=== PATIENT | female | born 1945 | race Caucasian/White ===

== ENCOUNTER 2016-08-31 06:32 | Day surgery (SDC) | payer MEDICARE ==
--- NOTE | ~2016-08-31 | OP ---
Record Of Operation [facility] [address] [facility] [place]. [address] NAME: SHOLA OLIVIER : 45 STATUS : REG [facility] [place] PAT#: [id number] AGE: 70 ADM/REG DATE : 08/31/16 MR#: [id number] REPORT SERV DATE: 08/31/16 DICTATED BY: TYSON DAVIES JR. DATE: 08/31/16 REPORT STATUS : Draft TRANSCRIBED BY: KAILYN DATE: 08/31/16 DATE OF PROCEDURE: 08/31/2016 PREOPERATIVE DIAGNOSES: Non-small cell lung cancer, right lower lobe, chronic obstructive pulmonary disease, atrial fibrillation, coronary disease, and history of breast cancer. POSTOPERATIVE DIAGNOSES: Non-small cell lung cancer, right lower lobe, chronic obstructive pulmonary disease, atrial fibrillation, coronary disease, and history of breast cancer. NAME OF OPERATION: Diagnostic and therapeutic bronchoscopy, endobronchial ultrasound with multiple fine-needle aspirations, breezy stations 4R, 7, 11R. SURGEON: Tyson Davies M.D. RESIDENT SURGEON: Stevenson Flores MD ANESTHESIA: General endotracheal. FINDINGS: The patient was noted to have no endobronchial lesions. Her anatomy was normal. Mucous secretions were evacuated. Nodes in the right paratracheal, subcarinal, and right hilar area all morphologically looked normal. On multiple touch preps, there were adequate lymphocytes with no evidence of cancer. Additional material was sent for cell block. Final pathology is pending. DETAILS OF OPERATION: After adequate anesthesia, the patient was intubated. Diagnostic and therapeutic bronchoscopy was performed with the above findings noted. Endobronchial ultrasound was then performed noting the ultrasound findings of the paratracheal and hilar lymph nodes. We sampled subcarinal, right paratracheal, and right hilar nodes. They all looked benign on ultrasound as well as on touch prep. Additional material was sent for cell block. Final pathology is pending. Adequate hemostasis was obtained. The procedure was terminated at this point. The patient tolerated the procedure well and returned to the recovery room in stable condition. GONZALEZ/KAILYN Tyson Davies Jr., M.D. / [id number] CC: Lore Damico Jr., MD
[~2016-08-31 06:32] MED LIST: ADVAIR250 INH; ASAB PO; ATROVENTUD INH; BETAP120 PO; FLONASE NAS; GLUCPH PO; INCRUSE ELLI62.5 MCG INH; LIPITOR20 PO; PLAVIX PO; PREV15 PO; SINGULAIR1 PO; XYZAL5 MG PO; [UNRECOGNIZED DRUG - REMARK] INH
== END 2016-08-31 23:59 | disposition home or self-care (01) ==
LOC: DMU 06:32
PROVIDERS: Thoracic Surgery (Cardiothoracic Vascular Surgery)
PROC: 0BJ08ZZ Inspection of Tracheobronchial Tree, Via Natural or Artificial Opening Endoscopic (ICD-10-PCS; principal; 2016-08-31 08:00)
PROC: 07974ZX Drainage of Thorax Lymphatic, Percutaneous Endoscopic Approach, Diagnostic (ICD-10-PCS; 2016-08-31 08:00)
DX: C34.31 Malignant neoplasm of lower lobe, right bronchus or lung (principal); J44.9 Chronic obstructive pulmonary disease, unspecified; I48.91 Unspecified atrial fibrillation; I25.10 Atherosclerotic heart disease of native coronary artery without angina pectoris; R59.9 Enlarged lymph nodes, unspecified; F17.210 Nicotine dependence, cigarettes, uncomplicated; E11.9 Type 2 diabetes mellitus without complications; M19.90 Unspecified osteoarthritis, unspecified site; J45.909 Unspecified asthma, uncomplicated; Z85.3 Personal history of malignant neoplasm of breast; Z88.2 Allergy status to sulfonamides; Z88.5 Allergy status to narcotic agent; Z88.8 Allergy status to other drugs, medicaments and biological substances; Z96.1 Presence of intraocular lens; Z98.890 Other specified postprocedural states; Z87.01 Personal history of pneumonia (recurrent); Z90.49 Acquired absence of other specified parts of digestive tract; Z90.710 Acquired absence of both cervix and uterus; Z85.118 Personal history of other malignant neoplasm of bronchus and lung; Z92.21 Personal history of antineoplastic chemotherapy; Z92.3 Personal history of irradiation
CPT/HCPCS: 80048; 82962; 85014; 85018; 88172; 88173; 88305; 93005; A9270-GY; C1725; J2370; J2405; J3010

== ENCOUNTER 2016-09-06 07:35 | Inpatient (IN) | payer MEDICARE ==
[2016-08-31 07:08] LABS: BASOPHILS 0.3 %; BASOPHILS ABSOLUTE 0.03 10/3/uL (0.0-0.16); EOSINOPHILS 2.5 %; EOSINOPHILS ABSOLUTE 0.24 10/3/uL (0.0-0.53); HEMATOCRIT 42.2 % (36.0-48.0); HEMOGLOBIN 13.4 g/dL (12.0-16.0); IMMATURE GRANULOCYTES 0.4 %; IMMATURE GRANULOCYTES ABSOLUTE 0.04 10/3/uL (0.0-0.11); LYMPHOCYTES 22.5 %; LYMPHOCYTES ABSOLUTE 2.17 10/3/uL (0.67-4.30); MEAN CORPUS HGB CONC 31.8 g/dL (32.0-36.0); MEAN CORPUSCULAR VOLUME 88.1 fL (80-100); MEAN PLATELET VOLUME 9.8 fL (9.2-13.0); MONOCYTES 6.1 %; MONOCYTES ABSOLUTE 0.59 10/3/uL (0.21-1.20); NEUTROPHILS 68.2 %; NEUTROPHILS ABSOLUTE 6.57 10/3/uL (2.02-8.40); PLATELET COUNT 292 10/3/uL (150-400); RED CELL COUNT 4.79 10/6/uL (4.0-5.6); WHITE BLOOD CELLS 9.6 10/3/uL (4.5-10.5)
[2016-08-31 07:10] LABS: MANUAL DIFF NO %
[2016-08-31 07:17] LABS: INTERNATIONAL NORMAL RATI 0.9 UNITS (-); PROTIME (NOT ORD) 11.9 SEC (12.0-14.5)
[2016-08-31 07:24] LABS: A/G RATIO 1.2 (0.7-1.9); ALBUMIN 3.8 G/DL (3.5-5.0); CHLORIDE, SERUM 105 MMOL/L (96-112); CO2 (CARBON DIOXIDE) 31 MMOL/L (24-34); CREATININE 0.58 MG/DL (0.55-1.02); GFR AFRICAN AMERICAN 108 ML/MIN (>=60); GFR NON AFRICAN AMERICAN 93 ML/MIN (>=60); GLOBULIN 3.3 G/DL (2.5-4.1); GLUCOSE, SERUM 120 MG/DL (60-99); POTASSIUM, SERUM 4.4 MMOL/L (3.5-5.3); SGOT(AST) 11 U/L (5-40); SGPT(ALT) 13 U/L (5-65); SODIUM, SERUM 140 MMOL/L (135-148); TOTAL BILIRUBIN 0.2 MG/DL (0-1.2); TOTAL PROTEIN 7.1 G/DL (6.0-8.5)
[2016-08-31 07:25] LABS: ALKALINE PHOSPHATASE 128 U/L (45-117); BUN (BLOOD UREA NITROGEN) 20 MG/DL (6-23)
[2016-08-31 09:01] LABS: ASCORBIC ACID (UR NOT ORDER) NEG (NEG); BILIRUBIN, URINE NEGATIVE (NEG); KETONE, URINE NEGATIVE (NEG); LEUKOCYTE ESTERASE(NOT OR NEG (NEG); WBC (NOT ORDERED) (RFLEX) < 1 (0-5)
--- NOTE | ~2016-09-06 | DS ---
Discharge Summary [facility] [address] [place]. [address] NAME: SHOLA OLIVIER : 45 STATUS : DIS IN PAT#: [id number] AGE: 70 ADM/REG DATE : 09/06/16 MR#: [id number] REPORT SERV DATE: 09/20/16 DICTATED BY: TYSON DIAZ DATE: 09/19/16 REPORT STATUS : Draft TRANSCRIBED BY: KAILYN DATE: 09/19/16 Data Collection from hospitalization DISCHARGE DIAGNOSES: 1. Squamous cell carcinoma of the right lung. 2. Paroxysmal atrial fibrillation. 3. Chronic obstructive pulmonary disease. 4. Tobacco abuse. 5. Diabetes mellitus. 6. History of breast cancer. 7. Tobacco abuse. CONSULTATIONS: None. PROCEDURES PERFORMED: Right video-assisted thoracic surgery with right lower lobectomy and mediastinal lymph node dissection on 09/06/2016. PATHOLOGY: Lung, right lower lobe lobectomy - invasive squamous cell carcinoma. Level 9 lymph node biopsy - one lymph node negative for tumor (0/1). Level 11 lymph node regional resection - three lymph nodes negative for tumor (0/3). Level 11 lymph node biopsy - one lymph node negative for tumor (0/1). Level 10 lymph nodes, regional resection - three lymph nodes negative for tumor (0/3). Level 7 lymph node regional resection - nine lymph nodes negative for tumor (0/9). Level 4R lymph nodes, regional resection - three lymph nodes negative for tumor (0/3). MEDICATIONS: Vitamin C 1000 mg daily, aspirin 81 mg daily, Lipitor 20 mg at bedtime, Plavix 75 mg daily, Flonase nasal spray one spray nasally at bedtime, Advair Diskus two puffs via inhaler twice a day, [place] 5/325 one tablet every four hours as needed, Atrovent solution one nebulized inhaler at bedtime, Prevacid 15 mg every morning, Xyzal 5 mg at bedtime, Glucophage 500 mg with breakfast and supper, Singulair 10 mg every evening, Habitrol transdermal patch as instructed, Betapace 120 mg every 12 hours, Incruse Ellipta one puff via inhaler daily. CONDITION AT DISCHARGE: Stable. DISPOSITION: The patient was discharged home on an 1800-calorie diabetic diet with activities as instructed. She would follow up with me three to four weeks following discharge. She would follow up with Dr. Landon Blanca on 09/29/2016. HOSPITAL COURSE: This is a 70-year-old female who has a long history of smoking and has a history of left breast carcinoma. She was found to have stage IA disease and had chemotherapy and radiation therapy in 2013. In June of this year, she contracted pneumonia. A chest x-ray demonstrated a possible lesion in the right lung. CT scan confirmed the presence of a 3.1 cm peripheral lesion in the right lower lobe. Subsequent needle biopsy was positive for squamous cell carcinoma. PET scan and MRI testing did not show any definitive evidence of metastatic breast, however, mediastinal lymph nodes had increased uptake. Pulmonary function testing was reasonable. She has been seen by Dr. Leavitt in [place] for possible radiation therapy if indicated. Treatment options were Discharge Summary [address] [address] NAME: SHOLA OLIVIER : 45 STATUS : DIS IN PAT#: [id number] AGE: 70 ADM/REG DATE : 09/06/16 MR#: [id number] REPORT SERV DATE: 09/20/16 DICTATED BY: TYSON DIAZ DATE: 09/19/16 REPORT STATUS : Draft TRANSCRIBED BY: KAILYN DATE: 09/19/16 discussed and it was elected to proceed with surgical intervention. She was admitted to the hospital at this time for further evaluation and treatment. Upon admission, she was taken to the operating room where she underwent the above-mentioned procedure. She tolerated this well, and there were no complications. The following day, she was up sitting in a chair. She had good analgesia with oral analgesic. Her incisions looked okay. Pathology results were pending. IV fluids and FLOORING INSTALLER were discontinued. We encouraged her to mobilize. On postop day #2, her chest x-ray revealed a tiny right apical hydropneumothorax. She did not feel as well at this time. NicoDerm patch was placed. Lasix was being given. Discharge planning was performed. On 09/09/2016, pathology results were reviewed. Discharge instructions were given. Chest tube was discontinued. Due to her improved and stable condition, she was discharged home with the above-stated instructions. Information collected by: Jesenia Landers I submit the above information as my discharge summary. VINCENZO/KAILYN Tyson Diaz M.D. / [id number] CC: Lore Swenson MD
--- NOTE | ~2016-09-06 | OP ---
Record Of Operation [facility] [address] [place]. [address] NAME: SHOLA OLIVIER : 45 STATUS : ADM IN PAT#: [id number] AGE: 70 ADM/REG DATE : 09/06/16 MR#: [id number] REPORT SERV DATE: 09/08/16 DICTATED BY: TYSON DIAZ DATE: 09/07/16 REPORT STATUS : Draft TRANSCRIBED BY: MODL DATE: 09/07/16 DATE OF PROCEDURE: 09/06/2016 PREOPERATIVE DIAGNOSES: 1. Right lower lobe non-small cell lung cancer. 2. History of breast cancer. 3. Chronic obstructive pulmonary disease. 4. Tobacco abuse. POSTOPERATIVE DIAGNOSES: 1. Right lower lobe non-small cell lung cancer. 2. History of breast cancer. 3. Chronic obstructive pulmonary disease. 4. Tobacco abuse. PROCEDURES PERFORMED: 1. Right video-assisted thoracic surgery with right lower lobectomy. 2. Mediastinal lymph node dissection. SURGEON: Tyson Diaz M.D. MANUAL LATHE OPERATOR: Adore Chaudhary. ANESTHESIA: General. INDICATIONS: This is a 70-year-old female with a long history of smoking who also has a history of left breast carcinoma, who had stage IA disease and had chemotherapy and radiation therapy in 2013. In June of this year, she contracted pneumonia and was seen by her family physician, Dr. Maria Dolores Rodriguez. Chest x-ray demonstrated possible lesion in the right lung. CT scan confirmed the presence of a 3.1 cm peripheral lesion in the right lower lobe. Subsequent needle biopsy is positive for squamous cell carcinoma. PET scan and MRI testing did not show any definitive evidence of metastatic spread; however, mediastinal lymph nodes had increased uptake. Pulmonary function testing was reasonable. She has also been seen by Dr. Leavitt in [place] for possible radiation therapy if indicated. We were asked to see the patient for possible consideration for right lower lobectomy. Because of mediastinal lymph nodes having increased uptake and being mildly enlarged on PET, the patient underwent EBUS study, sampling of mediastinal lymph nodes was negative for malignancy. We discussed possible right lower lobectomy with the patient and her , and after a lengthy discussion of operation, its indications and risks, they wished to proceed. FINDINGS AT OPERATION: 1. There was no effusion and there was no evidence of chest wall invasion of the mass. The mass did appear to reach the visceral pleural surface of the lung, but did not penetrate. 2. There was an incomplete fissure between the right middle and right lower lobe and right Record Of Operation [address] [address] NAME: SHOLA OLIVIER : 45 STATUS : ADM IN PAT#: [id number] AGE: 70 ADM/REG DATE : 09/06/16 MR#: [id number] REPORT SERV DATE: 09/08/16 DICTATED BY: TYSON DIAZ DATE: 09/07/16 REPORT STATUS : Draft TRANSCRIBED BY: KAILYN DATE: 09/07/16 upper lobe. 3. The bronchial margin was negative on frozen section. 4. Mediastinal lymph nodes from levels 4R, 7, 9, 10, and 11 were removed. 5. We used a TAP block as the intercostal nerve block and field block. PATHOLOGIC SPECIMENS: Include the right lower lobe. We did do a frozen section of level 11 lymph node and this was negative for malignancy. Additional pathologic specimen includes lymph nodes from levels 4, 7, 9, 10, and 11. DESCRIPTION OF PROCEDURE: The patient was brought to the operating suite where general anesthesia was induced and airway secured with a dual-lumen endotracheal tube. Lines were secured by Anesthesia. The patient was rolled in a left lateral decubitus position and right chest was prepped with Hibiclens and ChloraPrep and draped with Ioban sterile sheets. The right lung was deflated by Anesthesia. A single 3-4 cm VATS incision was made along the posterior axillary line and four intercostal space above the costal margin. This was carried through the subcutaneous tissue and chest wall musculature. The intercostal musculature was divided and we entered the chest bluntly. A protractor soft tissue retractor was placed. A second VATS incision was made along the anterior axillary line and this was measured 1 to 2 cm in length and it was placed one interspace above the previous VATS incision. We entered the chest bluntly with a tonsil clamp and under thoracoscopic visualization. Through these two VATS ports, the operation was carried out. Examination demonstrated acute adhesions of the lung to the chest wall that were easily taken down. There was no effusion and no evidence of chest wall invasion from the lesion. The lesion could be seen on the visceral pleura of the right lower lobe and superior segment. Then, within the fissure between the upper and lower lobe, we could see the pulmonary artery and this was dissected out. The branch of the right middle lobe was dissected and preserved. The branches to the basilar segments of the right lower lobe and superior segment of the right lower lobe were identified, and these were circumferentially dissected. They were then ligated and divided with thoracoscopic stapler and a vascular staple load. Next, the inferior pulmonary ligament was divided up the inferior pulmonary vein. There were multiple generous level 9 lymph nodes were removed, I did not see any level 8 lymph nodes at this level. The inferior pulmonary vein was identified. It was then dissected circumferentially. It was ligated and divided with thoracoscopic stapler and a vascular staple load. This allowed us to see the right lower lobe bronchus clearly. Several level 10 and 11 lymph nodes around the hilum and extending on to the bronchus were removed and sent for pathologic examination. Then, the lung was retracted posteriorly. The anterior portion of the hilum was dissected. We identified the superior pulmonary vein in the middle lobe branches of the pulmonary vein. These were preserved. We dissected within the hilum and we were able to complete the fissure between the right lower lobe and right middle lobe using a single firing of the 60 mm black thoracoscopic staple load. There was a large lymph node within Record Of Operation [address] [place]. [address] NAME: SHOLA OLIVIER : 45 STATUS : [facility]#: [id number] AGE: 70 ADM/REG DATE : 09/06/16 MR#: [id number] REPORT SERV DATE: 09/08/16 DICTATED BY: TYSON DIAZ DATE: 09/07/16 REPORT STATUS : Draft TRANSCRIBED BY: MODL DATE: 09/07/16 the staple anvil and portion of this lymph node was sent for frozen section. It did return negative for malignancy, and just for completeness, we did remove this lymph node and sent it as a level 11 lymph node. We then completed the fissure posteriorly. Briefly, the lung was retracted anteriorly and the posterior aspect of the hilum was dissected. We identified the myla between the upper and lower lobe bronchi. We then used the 60 mm black staple load to complete the fissure between the upper and lower lobe posteriorly. This allowed us good visualization of the bronchus. Level 11 lymph nodes around the bronchus were removed and sent for pathologic examination. Then, we dissected the bronchus circumferentially just past the takeoff of the right middle lobe bronchus. A 60 mm black staple load was placed across the right lower lobe bronchi and test occlusion and ventilation demonstrated good aeration in the right upper and middle lobes. The stapler was fired and the bronchus divided. A large Endobag was placed into the chest and the right lower lobe placed in the Endobag and brought out through the largest of the VATS incisions. We then irrigated the chest with sterile water and saline. Next, mediastinal lymph node dissection was carried out. The lung was retracted anteriorly and the subcarinal region was dissected and level 7 lymph nodes were removed and sent for pathologic examination. Level 9 lymph nodes had been removed when the inferior pulmonary ligament was divided. Finally, the lung was retracted posteriorly. The superior hilum was addressed and the azygous vein was identified. Just medial to this, level 4R lymph nodes were removed and sent for pathologic examination. Once lymph node dissection was completed, the chest was again irrigated with sterile water and saline. Hemostasis was obtained. Next, intercostal nerve block and field block were performed with the TAP solution under thoracoscopic visualization. A 28 straight Green[place]ic chest tube was placed through a separate stab incision and directed towards the apex and secured to the skin. The lung was ventilated and filled the chest fairly well. The Protractor soft tissue retractor was removed, then the VATS incisions were closed in layers with absorbable suture and skin closed subcuticular fashion. The patient tolerated the procedure well. There were no complications. Sponge and needle counts were correct. DISPOSITION: The patient was extubated and taken to the recovery room in stable condition. JUSTICE/KAILYN Tyson Diaz M.D. Record Of Operation [place] [id number] [place]. [address] NAME: SHOLA OLIVIER : 45 STATUS : ADM IN [facility]#: [id number] AGE: 70 ADM/REG DATE : 09/06/16 MR#: [id number] REPORT SERV DATE: 09/08/16 DICTATED BY: TYSON DIAZ DATE: 09/07/16 REPORT STATUS : Draft TRANSCRIBED BY: KAILYN DATE: 09/07/16 / [id number] CC: Lore Swenson MD WILLIAM MCKAY, MD
[2016-09-07 04:15] LABS: BASOPHILS 0.1 %; BASOPHILS ABSOLUTE 0.01 10/3/uL (0.0-0.16); EOSINOPHILS 0 %; HEMOGLOBIN 11.5 g/dL (12.0-16.0); IMMATURE GRANULOCYTES 0.3 %; IMMATURE GRANULOCYTES ABSOLUTE 0.03 10/3/uL (0.0-0.11); LYMPHOCYTES 12.6 %; LYMPHOCYTES ABSOLUTE 1.39 10/3/uL (0.67-4.30); MEAN CORPUS HGB CONC 32.3 g/dL (32.0-36.0); MEAN CORPUSCULAR HEMOGLOB 28.4 pg (26.0-34.0); MEAN CORPUSCULAR VOLUME 87.9 fL (80-100); MONOCYTES 7.7 %; MONOCYTES ABSOLUTE 0.85 10/3/uL (0.21-1.20); NEUTROPHILS 79.3 %; NEUTROPHILS ABSOLUTE 8.77 10/3/uL (2.02-8.40); PLATELET COUNT 256 10/3/uL (150-400); RBC DISTRIBUTION WIDTH 13.9 % (12.0-16.0); RED CELL COUNT 4.05 10/6/uL (4.0-5.6); WHITE BLOOD CELLS 11.1 10/3/uL (4.5-10.5)
[2016-09-07 04:20] LABS: HEMATOCRIT 35.6 % (36.0-48.0); MANUAL DIFF NO %
[2016-09-07 04:33] LABS: CHLORIDE, SERUM 105 MMOL/L (96-112); GFR AFRICAN AMERICAN 107 ML/MIN (>=60); GFR NON AFRICAN AMERICAN 92 ML/MIN (>=60); POTASSIUM, SERUM 4.4 MMOL/L (3.5-5.3); SODIUM, SERUM 140 MMOL/L (135-148)
[2016-09-07 04:38] LABS: BUN (BLOOD UREA NITROGEN) 9 MG/DL (6-23); CALCIUM, SERUM 8.4 MG/DL (8.5-10.4); CO2 (CARBON DIOXIDE) 26 MMOL/L (24-34); GLUCOSE, SERUM 151 MG/DL (60-99)
[2016-09-09 04:54] LABS: BASOPHILS 0.2 %; BASOPHILS ABSOLUTE 0.02 10/3/uL (0.0-0.16); EOSINOPHILS 2.2 %; EOSINOPHILS ABSOLUTE 0.22 10/3/uL (0.0-0.53); HEMATOCRIT 38.5 % (36.0-48.0); HEMOGLOBIN 12.3 g/dL (12.0-16.0); IMMATURE GRANULOCYTES 0.4 %; IMMATURE GRANULOCYTES ABSOLUTE 0.04 10/3/uL (0.0-0.11); LYMPHOCYTES 19.4 %; LYMPHOCYTES ABSOLUTE 1.98 10/3/uL (0.67-4.30); MEAN CORPUS HGB CONC 31.9 g/dL (32.0-36.0); MEAN CORPUSCULAR HEMOGLOB 27.6 pg (26.0-34.0); MEAN CORPUSCULAR VOLUME 86.5 fL (80-100); MEAN PLATELET VOLUME 9.7 fL (9.2-13.0); MONOCYTES 13.7 %; NEUTROPHILS 64.1 %; NEUTROPHILS ABSOLUTE 6.55 10/3/uL (2.02-8.40); PLATELET COUNT 282 10/3/uL (150-400); RED CELL COUNT 4.45 10/6/uL (4.0-5.6); WHITE BLOOD CELLS 10.2 10/3/uL (4.5-10.5)
[2016-09-09 04:57] LABS: MANUAL DIFF NO %
[2016-09-09 05:08] LABS: BUN (BLOOD UREA NITROGEN) 10 MG/DL (6-23); CALCIUM, SERUM 9.1 MG/DL (8.5-10.4); CHLORIDE, SERUM 103 MMOL/L (96-112); CO2 (CARBON DIOXIDE) 29 MMOL/L (24-34); CREATININE 0.56 MG/DL (0.55-1.02); GFR AFRICAN AMERICAN 109 ML/MIN (>=60); GFR NON AFRICAN AMERICAN 94 ML/MIN (>=60); GLUCOSE, SERUM 122 MG/DL (60-99); POTASSIUM, SERUM 4.7 MMOL/L (3.5-5.3); SODIUM, SERUM 139 MMOL/L (135-148)
[2016-09-09] MEDS ORDERED: VITC500 PO (12:05)
[2016-09-09] MEDS ORDERED: HABIT14 (12:05)
[2016-09-09] MEDS ORDERED: NORCO1 TA1 PO (12:07)
== END 2016-09-09 13:29 | disposition home or self-care (01) | DRG 164 ==
LOC: SDC/OF 07:35 → PACU 12:34 → 5NO 14:54
PROVIDERS: Nurse Practitioner Family; Thoracic Surgery (Cardiothoracic Vascular Surgery)
PROC: 07B74ZZ Excision of Thorax Lymphatic, Percutaneous Endoscopic Approach (ICD-10-PCS; 2016-09-06)
PROC: 3E0T3BZ Introduction of Anesthetic Agent into Peripheral Nerves and Plexi, Percutaneous Approach (ICD-10-PCS; 2016-09-06)
PROC: 0BTF4ZZ Resection of Right Lower Lung Lobe, Percutaneous Endoscopic Approach (ICD-10-PCS; principal; 2016-09-06 09:15)
DX: C34.31 Malignant neoplasm of lower lobe, right bronchus or lung (principal); J95.811 Postprocedural pneumothorax; I48.0 Paroxysmal atrial fibrillation; J44.9 Chronic obstructive pulmonary disease, unspecified; Z85.3 Personal history of malignant neoplasm of breast; F17.210 Nicotine dependence, cigarettes, uncomplicated; Z92.21 Personal history of antineoplastic chemotherapy
CPT/HCPCS: 36415; 71010; 71020; 80048; 80053; 81001; 82962; 83036; 85025; 85610; 86850; 86900; 86901; 87641; 88305; 88307; 88309; 88313; 88331; 93005; 94640; A9270-GY; C1751; C1769; J0690; J1940; J2250; J2270; J2370; J2405; J2710; J2795; J3010